=== PATIENT | female | born 1980 | race Caucasian/White ===

== ENCOUNTER 2019-01-07 15:46 | Inpatient (IN) | payer OTHER ==
[~2019-01-07] VITALS: Ht 160 cm; Wt 44.0 kg
[2019-01-07] MEDS ORDERED: DiphenhydrAMINE HCL 25 MG CAPSULE PO PRN (18:15)
[2019-01-07] MEDS ORDERED: DEXTROSE 50%-WATER 25 GM/50 ML SYRINGE IVP PRN ×2 (18:15)
[2019-01-07] MEDS ORDERED: INSULIN LISPRO 100 UNITS/ML SQ PRN ×2 (18:15)
[2019-01-07 18:27] VITALS: BP 85/56
[2019-01-07] MEDS ORDERED: HYDROCODONE/ACETAMINOPHEN 5-325 MG TABLET PO PRN (18:30)
[2019-01-07] MEDS: -LIDODERM PATCH NOTE- MISC SCH (21:00)
[2019-01-07 21:15] VITALS: BP 87/60
[2019-01-07] MEDS: CYCLOBENZAPRINE HCL 10 MG TABLET PO PRN (21:16)
[2019-01-07] MEDS: DOCUSATE SODIUM 100 MG CAPSULE PO SCH (21:17)
[2019-01-07] MEDS: GABAPENTIN 100 MG CAPSULE PO SCH (21:17)
[2019-01-07] MEDS: SENNA 187 MG TABLET PO SCH (21:17)
[2019-01-07] MEDS: ALPRAZolam 0.25 MG TABLET PO PRN (22:08)
[2019-01-07 23:00] VITALS: BP 88/56
[2019-01-08] MEDS: PANTOPRAZOLE SODIUM 40 MG DR TABLET PO SCH (06:02)
[2019-01-08 06:03] VITALS: BP 102/76
[2019-01-08] MEDS: HYDROmorphone HCL 2 MG TABLET PO PRN (06:03)
[2019-01-08 06:38] LABS: BASOPHILS % (AUTO) 0.8 % (0.0-2.0); EOSINOPHILS % (AUTO) 1.5 % (1.0-6.0); HEMOGLOBIN 9.9 g/dL (12.0-16.0); LYMPHOCYTES # (AUTO) 2.5 K/uL (1.0-4.8); LYMPHOCYTES % (AUTO) 47.5 % (22.0-44.0); MEAN CORPUSCULAR HGB CONC 36.6 G/dL (31.0-37.0); MEAN CORPUSCULAR VOLUME 90 fL (80-100); MONOCYTES # (AUTO) 0.5 K/uL (0.1-1.0); MONOCYTES % (AUTO) 9.7 % (2.0-9.0); NEUTROPHILS # (AUTO) 2.1 K/uL (1.8-7.7); NEUTROPHILS % (AUTO) 40.5 % (40.0-70.0); PLATELET COUNT (AUTO) 213 K/uL (150-450); RED BLOOD CELL COUNT(AUTO) 2.99 MIL/uL (4.00-5.20); RED CELL DISTRIBUTION WIDTH 15.7 % (11.5-14.5)
[2019-01-08 06:55] LABS: ALANINE AMINOTRANSFERASE 204 U/L (12-78); ALBUMIN 2.5 g/dL (3.4-5.0); ALKALINE PHOSPHATASE 70 U/L (46-116); ANION GAP 3 mmol/L (8-16); ASPARTATE AMINOTRANSFERASE 71 U/L (15-37); BILIRUBIN,TOTAL 0.3 mg/dL (0.1-1.0); CALCIUM, TOTAL 8.9 mg/dL (8.8-10.5); CARBON DIOXIDE 31 mmol/L (22-29); CHLORIDE 106 mmol/L (98-107); CREATININE 0.58 mg/dL (0.60-1.30); GLOMERULAR FILTR. RATE CALC > 60 mL/min (>60); GLUCOSE,RANDOM 70 mg/dL (70-110); POTASSIUM 4.1 mmol/L (3.5-5.1); SODIUM SERUM 140 mmol/L (136-145); TOTAL PROTEIN, SERUM 5.3 g/dL (6.4-8.2); UREA NITROGEN, BLOOD 27 mg/dL (7-18)
[2019-01-08 07:52] VITALS: BP 99/61
[2019-01-08] MEDS ORDERED: PredniSONE 20 MG TABLET PO SCH (09:00)
[2019-01-08] MEDS: LIDOCAINE 5% TRANSDERMAL PATCH TD SCH (09:00)
[2019-01-08] MEDS ORDERED: MULTIVITAMINS WITH MINERALS, THERAPEUTIC TABLET PO SCH (09:00)
[2019-01-08] MEDS: MULTIVITAMINS WITH IRON TABLET PO SCH (09:00)
[2019-01-08] MEDS: PredniSONE 20 MG TABLET PO SCH (09:10)
[2019-01-08] MEDS: DOCUSATE SODIUM 100 MG CAPSULE PO SCH ×2 (09:10→20:14)
[2019-01-08] MEDS: ENOXAPARIN SODIUM 40 MG/0.4 ML PF SYRINGE SQ SCH (09:10)
[2019-01-08] MEDS: GABAPENTIN 100 MG CAPSULE PO SCH ×3 (09:11→20:13)
[2019-01-08] MEDS: TraMADol HCL 50 MG TABLET PO PRN ×3 (10:57→21:45)
[2019-01-08] MEDS: ONDANSETRON HCL 4 MG TABLET PO PRN (10:58)
[2019-01-08] MEDS: CYCLOBENZAPRINE HCL 10 MG TABLET PO PRN (15:35)
[2019-01-08 16:10] VITALS: BP 92/60
[2019-01-08] MEDS: SENNA 187 MG TABLET PO SCH (20:15)
[2019-01-08] MEDS: -LIDODERM PATCH NOTE- MISC SCH (20:16)
[2019-01-08] MEDS: ALPRAZolam 0.25 MG TABLET PO PRN (21:06)
[2019-01-09 03:30] VITALS: BP 98/68
[2019-01-09] MEDS: PANTOPRAZOLE SODIUM 40 MG DR TABLET PO SCH (06:33)
[2019-01-09] MEDS: ONDANSETRON HCL 4 MG TABLET PO PRN (08:10)
[2019-01-09] MEDS: LIDOCAINE 5% TRANSDERMAL PATCH TD SCH (09:00)
[2019-01-09 09:34] VITALS: BP 94/64
[2019-01-09] MEDS: ENOXAPARIN SODIUM 40 MG/0.4 ML PF SYRINGE SQ SCH (10:08)
[2019-01-09] MEDS: DOCUSATE SODIUM 100 MG CAPSULE PO SCH ×2 (10:09→20:56)
[2019-01-09] MEDS: CYCLOBENZAPRINE HCL 10 MG TABLET PO PRN ×3 (10:09→20:56)
[2019-01-09] MEDS: GABAPENTIN 100 MG CAPSULE PO SCH ×3 (10:09→20:56)
[2019-01-09] MEDS: PredniSONE 20 MG TABLET PO SCH (10:09)
[2019-01-09] MEDS: MULTIVITAMINS WITH IRON TABLET PO SCH (10:09)
[2019-01-09] MEDS: TraMADol HCL 50 MG TABLET PO PRN ×3 (10:20→20:22)
[2019-01-09 15:36] VITALS: BP 104/75
[2019-01-09] MEDS: SENNA 187 MG TABLET PO SCH (20:56)
[2019-01-09] MEDS: -LIDODERM PATCH NOTE- MISC SCH (21:00)
[2019-01-09] MEDS: ALPRAZolam 0.25 MG TABLET PO PRN (21:55)
[2019-01-10 02:30] VITALS: BP 104/69
[2019-01-10] MEDS: PANTOPRAZOLE SODIUM 40 MG DR TABLET PO SCH (05:44)
[2019-01-10 07:15] VITALS: BP 112/77
[2019-01-10] MEDS: ONDANSETRON HCL 4 MG TABLET PO PRN (07:23)
[2019-01-10] MEDS: TraMADol HCL 50 MG TABLET PO PRN ×2 (07:23→21:29)
[2019-01-10] MEDS: CYCLOBENZAPRINE HCL 10 MG TABLET PO PRN ×2 (08:28→19:31)
[2019-01-10] MEDS: GABAPENTIN 100 MG CAPSULE PO SCH ×3 (08:28→19:31)
[2019-01-10] MEDS: DOCUSATE SODIUM 100 MG CAPSULE PO SCH ×2 (08:28→19:51)
[2019-01-10] MEDS: ENOXAPARIN SODIUM 40 MG/0.4 ML PF SYRINGE SQ SCH (08:28)
[2019-01-10] MEDS: MULTIVITAMINS WITH IRON TABLET PO SCH (08:28)
[2019-01-10] MEDS: PredniSONE 20 MG TABLET PO SCH (08:32)
[2019-01-10] MEDS: LIDOCAINE 5% TRANSDERMAL PATCH TD SCH (08:34)
[2019-01-10 16:00] VITALS: BP 98/64
[2019-01-10] MEDS: BACLOFEN 10 MG TABLET PO SCH ×2 (17:15→19:30)
[2019-01-10 19:31] VITALS: BP 99/74
[2019-01-10] MEDS: HYDROmorphone HCL 2 MG TABLET PO PRN (19:44)
[2019-01-10] MEDS: -LIDODERM PATCH NOTE- MISC SCH (19:51)
[2019-01-10] MEDS: SENNA 187 MG TABLET PO SCH (19:51)
[2019-01-10 23:40] VITALS: BP 95/57
[2019-01-10] MEDS: ALPRAZolam 0.25 MG TABLET PO PRN (23:40)
[2019-01-11] MEDS: PANTOPRAZOLE SODIUM 40 MG DR TABLET PO SCH (06:40)
[2019-01-11 07:08] LABS: ALANINE AMINOTRANSFERASE 173 U/L (12-78); ALBUMIN 2.4 g/dL (3.4-5.0); ALKALINE PHOSPHATASE 68 U/L (46-116); ANION GAP 7 mmol/L (8-16); ASPARTATE AMINOTRANSFERASE 74 U/L (15-37); BILIRUBIN,TOTAL 0.3 mg/dL (0.1-1.0); CALCIUM, TOTAL 8.9 mg/dL (8.8-10.5); CARBON DIOXIDE 29 mmol/L (22-29); CHLORIDE 107 mmol/L (98-107); GLOMERULAR FILTR. RATE CALC > 60 mL/min (>60); GLUCOSE,RANDOM 71 mg/dL (70-110); SODIUM SERUM 143 mmol/L (136-145); TOTAL PROTEIN, SERUM 5.1 g/dL (6.4-8.2); UREA NITROGEN, BLOOD 25 mg/dL (7-18)
[2019-01-11 07:42] VITALS: BP 110/78
[2019-01-11] MEDS: ENOXAPARIN SODIUM 40 MG/0.4 ML PF SYRINGE SQ SCH (07:47)
[2019-01-11] MEDS: MULTIVITAMINS WITH IRON TABLET PO SCH (07:48)
[2019-01-11] MEDS: BACLOFEN 10 MG TABLET PO SCH ×3 (07:48→20:55)
[2019-01-11] MEDS: PredniSONE 5 MG TABLET PO SCH (07:48)
[2019-01-11] MEDS: TraMADol HCL 50 MG TABLET PO PRN ×3 (07:48→20:59)
[2019-01-11] MEDS: DOCUSATE SODIUM 100 MG CAPSULE PO SCH ×2 (07:48→20:54)
[2019-01-11] MEDS: GABAPENTIN 100 MG CAPSULE PO SCH ×3 (07:48→20:56)
[2019-01-11] MEDS: LIDOCAINE 5% TRANSDERMAL PATCH TD SCH (07:54)
[2019-01-11] MEDS: ONDANSETRON HCL 4 MG TABLET PO PRN (08:59)
[2019-01-11] MEDS ORDERED: PredniSONE 10 MG TABLET PO SCH (09:00)
[2019-01-11] MEDS: CYCLOBENZAPRINE HCL 10 MG TABLET PO PRN ×2 (13:42→20:59)
[2019-01-11 16:07] VITALS: BP 99/57
[2019-01-11] MEDS: -LIDODERM PATCH NOTE- MISC SCH (20:54)
[2019-01-11] MEDS: SENNA 187 MG TABLET PO SCH (20:58)
[2019-01-11] MEDS: ALPRAZolam 0.25 MG TABLET PO PRN (22:08)
[2019-01-12] MEDS: PANTOPRAZOLE SODIUM 40 MG DR TABLET PO SCH (06:55)
[2019-01-12 07:27] VITALS: BP 115/74
[2019-01-12] MEDS: ONDANSETRON HCL 4 MG TABLET PO PRN (07:51)
[2019-01-12] MEDS: ENOXAPARIN SODIUM 40 MG/0.4 ML PF SYRINGE SQ SCH (08:33)
[2019-01-12] MEDS: MULTIVITAMINS WITH IRON TABLET PO SCH (08:33)
[2019-01-12] MEDS: DOCUSATE SODIUM 100 MG CAPSULE PO SCH ×2 (08:33→21:11)
[2019-01-12] MEDS: BACLOFEN 10 MG TABLET PO SCH ×3 (08:34→21:11)
[2019-01-12] MEDS: PredniSONE 5 MG TABLET PO SCH (08:34)
[2019-01-12] MEDS: GABAPENTIN 100 MG CAPSULE PO SCH ×3 (08:34→21:12)
[2019-01-12] MEDS: TraMADol HCL 50 MG TABLET PO PRN ×3 (08:34→21:12)
[2019-01-12] MEDS: LIDOCAINE 5% TRANSDERMAL PATCH TD SCH (08:35)
[2019-01-12 16:40] VITALS: BP 104/64
[2019-01-12] MEDS: -LIDODERM PATCH NOTE- MISC SCH (21:00)
[2019-01-12] MEDS: ALPRAZolam 0.25 MG TABLET PO PRN (21:11)
[2019-01-12] MEDS: SENNA 187 MG TABLET PO SCH (21:12)
[2019-01-12 23:00] VITALS: BP 105/71
[2019-01-13] MEDS: PANTOPRAZOLE SODIUM 40 MG DR TABLET PO SCH (06:40)
[2019-01-13] MEDS: ENOXAPARIN SODIUM 40 MG/0.4 ML PF SYRINGE SQ SCH (08:37)
[2019-01-13] MEDS: DOCUSATE SODIUM 100 MG CAPSULE PO SCH ×2 (08:37→21:05)
[2019-01-13] MEDS: MULTIVITAMINS WITH IRON TABLET PO SCH (08:37)
[2019-01-13] MEDS: BACLOFEN 10 MG TABLET PO SCH ×3 (08:38→21:06)
[2019-01-13] MEDS: GABAPENTIN 100 MG CAPSULE PO SCH ×3 (08:38→21:05)
[2019-01-13] MEDS: PredniSONE 5 MG TABLET PO SCH (08:39)
[2019-01-13] MEDS: LIDOCAINE 5% TRANSDERMAL PATCH TD SCH (08:39)
[2019-01-13] MEDS: ONDANSETRON HCL 4 MG TABLET PO PRN (08:39)
[2019-01-13] MEDS: TraMADol HCL 50 MG TABLET PO PRN ×2 (08:42→21:06)
[2019-01-13 09:00] VITALS: BP 106/74
[2019-01-13 16:00] VITALS: BP 110/74
[2019-01-13] MEDS: SENNA 187 MG TABLET PO SCH (21:05)
[2019-01-13] MEDS: ALPRAZolam 0.25 MG TABLET PO PRN (22:04)
[2019-01-14 06:00] VITALS: BP 111/75
[2019-01-14] MEDS: PANTOPRAZOLE SODIUM 40 MG DR TABLET PO SCH (06:31)
[2019-01-14 08:00] VITALS: BP 107/71
[2019-01-14] MEDS: ENOXAPARIN SODIUM 40 MG/0.4 ML PF SYRINGE SQ SCH (08:03)
[2019-01-14] MEDS: PredniSONE 10 MG TABLET PO SCH (08:04)
[2019-01-14] MEDS: GABAPENTIN 100 MG CAPSULE PO SCH ×3 (08:04→20:33)
[2019-01-14] MEDS: DOCUSATE SODIUM 100 MG CAPSULE PO SCH ×2 (08:04→20:33)
[2019-01-14] MEDS: MULTIVITAMINS WITH IRON TABLET PO SCH (08:04)
[2019-01-14] MEDS: BACLOFEN 10 MG TABLET PO SCH ×3 (08:04→20:33)
[2019-01-14] MEDS: ONDANSETRON HCL 4 MG TABLET PO PRN ×2 (08:05→19:28)
[2019-01-14 15:30] VITALS: BP 103/75
[2019-01-14] MEDS: TraMADol HCL 50 MG TABLET PO PRN ×2 (19:15→20:34)
[2019-01-14] MEDS: SENNA 187 MG TABLET PO SCH (20:34)
[2019-01-14] MEDS: ALPRAZolam 0.25 MG TABLET PO PRN (23:43)
[2019-01-14 23:53] VITALS: BP_SYST 104; BP_SYST 94; BP_DIAS 69
[2019-01-15] MEDS: PANTOPRAZOLE SODIUM 40 MG DR TABLET PO SCH (06:37)
[2019-01-15] MEDS: ONDANSETRON HCL 4 MG TABLET PO PRN ×2 (07:44→18:12)
[2019-01-15] MEDS: GABAPENTIN 100 MG CAPSULE PO SCH ×3 (08:21→20:56)
[2019-01-15] MEDS: PredniSONE 10 MG TABLET PO SCH (08:21)
[2019-01-15] MEDS: DOCUSATE SODIUM 100 MG CAPSULE PO SCH ×2 (08:21→20:56)
[2019-01-15] MEDS: MULTIVITAMINS WITH IRON TABLET PO SCH (08:22)
[2019-01-15] MEDS: BACLOFEN 10 MG TABLET PO SCH ×3 (08:23→21:00)
[2019-01-15] MEDS: ENOXAPARIN SODIUM 40 MG/0.4 ML PF SYRINGE SQ SCH (08:23)
[2019-01-15] MEDS ORDERED: PredniSONE 10 MG TABLET PO SCH (09:00)
[2019-01-15 09:01] VITALS: BP 110/57
[2019-01-15] MEDS: TraMADol HCL 50 MG TABLET PO PRN (12:21)
[2019-01-15 16:01] VITALS: BP 94/69
[2019-01-15] MEDS ORDERED: HYDROmorphone HCL 2 MG TABLET PO PRN (20:15)
[2019-01-15] MEDS ORDERED: HYDROCODONE/ACETAMINOPHEN 5-325 MG TABLET PO PRN (20:15)
[2019-01-15] MEDS: SENNA 187 MG TABLET PO SCH (20:56)
[2019-01-15] MEDS: ALPRAZolam 0.25 MG TABLET PO PRN (21:41)
[2019-01-15 23:00] VITALS: BP 93/68
[2019-01-16] MEDS: PANTOPRAZOLE SODIUM 40 MG DR TABLET PO SCH (06:39)
[2019-01-16] MEDS: ONDANSETRON HCL 4 MG TABLET PO PRN (07:45)
[2019-01-16] MEDS: BACLOFEN 10 MG TABLET PO SCH ×3 (08:49→20:38)
[2019-01-16] MEDS: MULTIVITAMINS WITH IRON TABLET PO SCH (08:49)
[2019-01-16] MEDS: DOCUSATE SODIUM 100 MG CAPSULE PO SCH (08:49)
[2019-01-16] MEDS: GABAPENTIN 100 MG CAPSULE PO SCH ×3 (08:49→20:38)
[2019-01-16] MEDS: ENOXAPARIN SODIUM 40 MG/0.4 ML PF SYRINGE SQ SCH (08:50)
[2019-01-16 09:00] VITALS: BP 95/64
[2019-01-16] MEDS: PredniSONE 10 MG TABLET PO SCH (11:41)
[2019-01-16 15:40] VITALS: BP 95/65
[2019-01-16] MEDS: DOCUSATE SODIUM 250 MG CAPSULE PO SCH (20:37)
[2019-01-16] MEDS: SENNA 187 MG TABLET PO SCH (20:38)
[2019-01-16] MEDS: HYDROmorphone HCL 2 MG TABLET PO PRN (20:42)
[2019-01-16] MEDS: ALPRAZolam 0.25 MG TABLET PO PRN (22:08)
[2019-01-17] MEDS: PANTOPRAZOLE SODIUM 40 MG DR TABLET PO SCH (06:36)
[2019-01-17 07:42] VITALS: BP 102/66
[2019-01-17] MEDS: ONDANSETRON HCL 4 MG TABLET PO PRN (07:45)
[2019-01-17] MEDS: ENOXAPARIN SODIUM 40 MG/0.4 ML PF SYRINGE SQ SCH (08:35)
[2019-01-17] MEDS: GABAPENTIN 100 MG CAPSULE PO SCH ×3 (08:36→20:56)
[2019-01-17] MEDS: DOCUSATE SODIUM 250 MG CAPSULE PO SCH ×2 (08:36→20:57)
[2019-01-17] MEDS: BACLOFEN 10 MG TABLET PO SCH ×3 (08:36→20:56)
[2019-01-17] MEDS: MULTIVITAMINS WITH IRON TABLET PO SCH (08:36)
[2019-01-17] MEDS: PredniSONE 5 MG TABLET PO SCH (13:40)
[2019-01-17 15:56] VITALS: BP 107/66
[2019-01-17] MEDS: MELATONIN 3 MG TABLET PO PRN (20:56)
[2019-01-17] MEDS: SENNA 187 MG TABLET PO SCH (20:57)
[2019-01-17 23:00] VITALS: BP 101/64
[2019-01-18] MEDS: PANTOPRAZOLE SODIUM 40 MG DR TABLET PO SCH (06:40)
[2019-01-18 07:30] VITALS: BP 110/80
[2019-01-18] MEDS: GABAPENTIN 100 MG CAPSULE PO SCH ×3 (07:56→21:36)
[2019-01-18] MEDS: POLYETHYLENE GLYCOL 3350 17 GM PACKET PO SCH (07:56)
[2019-01-18] MEDS: MULTIVITAMINS WITH IRON TABLET PO SCH (07:56)
[2019-01-18] MEDS: PredniSONE 5 MG TABLET PO SCH (07:56)
[2019-01-18] MEDS: BACLOFEN 10 MG TABLET PO SCH ×3 (07:56→21:36)
[2019-01-18] MEDS: DOCUSATE SODIUM 250 MG CAPSULE PO SCH ×2 (07:56→21:36)
[2019-01-18] MEDS: ENOXAPARIN SODIUM 40 MG/0.4 ML PF SYRINGE SQ SCH (07:57)
[2019-01-18] MEDS ORDERED: PredniSONE 5 MG TABLET PO SCH (09:00)
[2019-01-18 16:04] VITALS: BP 118/85
[2019-01-18] MEDS: MELATONIN 3 MG TABLET PO PRN (21:36)
[2019-01-18] MEDS: SENNA 187 MG TABLET PO SCH (21:36)
[2019-01-18] MEDS: TraMADol HCL 50 MG TABLET PO PRN (21:36)
[2019-01-18 23:00] VITALS: BP 105/65
[2019-01-19] MEDS: PANTOPRAZOLE SODIUM 40 MG DR TABLET PO SCH (06:26)
[2019-01-19] MEDS: POLYETHYLENE GLYCOL 3350 17 GM PACKET PO SCH (07:44)
[2019-01-19] MEDS: ONDANSETRON HCL 4 MG TABLET PO PRN (07:44)
[2019-01-19] MEDS: PredniSONE 5 MG TABLET PO SCH (07:44)
[2019-01-19] MEDS: DOCUSATE SODIUM 250 MG CAPSULE PO SCH ×2 (07:44→20:32)
[2019-01-19] MEDS: ENOXAPARIN SODIUM 40 MG/0.4 ML PF SYRINGE SQ SCH (07:44)
[2019-01-19] MEDS: MULTIVITAMINS WITH IRON TABLET PO SCH (07:45)
[2019-01-19] MEDS: GABAPENTIN 100 MG CAPSULE PO SCH ×3 (07:45→20:32)
[2019-01-19] MEDS: BACLOFEN 10 MG TABLET PO SCH ×3 (07:45→20:32)
[2019-01-19 08:12] VITALS: BP 120/67
[2019-01-19 16:05] VITALS: BP 104/68
[2019-01-19] MEDS: SENNA 187 MG TABLET PO SCH (20:32)
[2019-01-19] MEDS: MELATONIN 3 MG TABLET PO PRN (20:32)
[2019-01-19 23:00] VITALS: BP 95/66
[2019-01-20] MEDS: PANTOPRAZOLE SODIUM 40 MG DR TABLET PO SCH (06:40)
[2019-01-20 07:10] VITALS: BP 103/71
[2019-01-20] MEDS: GABAPENTIN 100 MG CAPSULE PO SCH ×3 (08:30→20:32)
[2019-01-20] MEDS: ENOXAPARIN SODIUM 40 MG/0.4 ML PF SYRINGE SQ SCH (08:30)
[2019-01-20] MEDS: BACLOFEN 10 MG TABLET PO SCH ×3 (08:30→20:32)
[2019-01-20] MEDS: DOCUSATE SODIUM 250 MG CAPSULE PO SCH ×2 (08:30→20:32)
[2019-01-20] MEDS: POLYETHYLENE GLYCOL 3350 17 GM PACKET PO SCH (08:30)
[2019-01-20] MEDS: MULTIVITAMINS WITH IRON TABLET PO SCH (08:30)
[2019-01-20] MEDS ORDERED: PredniSONE 5 MG TABLET PO ONE (09:30)
[2019-01-20] MEDS: ONDANSETRON HCL 4 MG TABLET PO PRN (09:36)
[2019-01-20 16:00] VITALS: BP 96/73
[2019-01-20] MEDS: SENNA 187 MG TABLET PO SCH (20:32)
[2019-01-20] MEDS: MELATONIN 3 MG TABLET PO PRN (20:32)
[2019-01-21 02:10] VITALS: BP 105/61
[2019-01-21] MEDS: PANTOPRAZOLE SODIUM 40 MG DR TABLET PO SCH (07:02)
[2019-01-21] MEDS: MULTIVITAMINS WITH IRON TABLET PO SCH (08:55)
[2019-01-21] MEDS: POLYETHYLENE GLYCOL 3350 17 GM PACKET PO SCH (08:56)
[2019-01-21] MEDS: BACLOFEN 10 MG TABLET PO SCH ×3 (08:56→20:41)
[2019-01-21] MEDS: DOCUSATE SODIUM 250 MG CAPSULE PO SCH ×2 (08:56→20:39)
[2019-01-21] MEDS: GABAPENTIN 100 MG CAPSULE PO SCH ×3 (08:56→20:40)
[2019-01-21] MEDS: ENOXAPARIN SODIUM 40 MG/0.4 ML PF SYRINGE SQ SCH (08:57)
[2019-01-21 09:01] VITALS: BP 107/77
[2019-01-21 16:00] VITALS: BP 97/63
[2019-01-21] MEDS: SENNA 187 MG TABLET PO SCH (20:40)
[2019-01-21] MEDS: MELATONIN 3 MG TABLET PO PRN (20:40)
[2019-01-21] MEDS: ALPRAZolam 0.25 MG TABLET PO PRN (22:10)
[2019-01-21] MEDS: TraMADol HCL 50 MG TABLET PO PRN (22:11)
[2019-01-21] MEDS: HYDROmorphone HCL 2 MG TABLET PO PRN (23:24)
[2019-01-21 23:34] VITALS: BP 98/69
[2019-01-22] MEDS: PANTOPRAZOLE SODIUM 40 MG DR TABLET PO SCH (06:44)
[2019-01-22 07:48] VITALS: BP 90/61
[2019-01-22] MEDS: DOCUSATE SODIUM 250 MG CAPSULE PO SCH ×2 (09:22→21:11)
[2019-01-22] MEDS: ENOXAPARIN SODIUM 40 MG/0.4 ML PF SYRINGE SQ SCH (09:22)
[2019-01-22] MEDS: MULTIVITAMINS WITH IRON TABLET PO SCH (09:22)
[2019-01-22] MEDS: GABAPENTIN 100 MG CAPSULE PO SCH ×3 (09:22→21:10)
[2019-01-22] MEDS: POLYETHYLENE GLYCOL 3350 17 GM PACKET PO SCH (09:22)
[2019-01-22] MEDS: BACLOFEN 10 MG TABLET PO SCH ×3 (09:22→21:11)
[2019-01-22] MEDS ORDERED: DOCUSATE SODIUM 283 MG/5 ML MINI-ENEMA PR PRN (14:30)
[2019-01-22 16:00] VITALS: BP 98/72
[2019-01-22] MEDS: ACETAMINOPHEN 325 MG TABLET PO PRN (16:13)
[2019-01-22] MEDS: SENNA 187 MG TABLET PO SCH (21:10)
[2019-01-22] MEDS: MELATONIN 3 MG TABLET PO PRN (21:13)
[2019-01-22 21:41] VITALS: BP 105/65
[2019-01-22] MEDS: ALPRAZolam 0.25 MG TABLET PO PRN (22:44)
[2019-01-23] MEDS: PANTOPRAZOLE SODIUM 40 MG DR TABLET PO SCH (06:28)
[2019-01-23 06:30] VITALS: BP 98/69
[2019-01-23 07:17] LABS: EOSINOPHILS % (AUTO) 0.9 % (1.0-6.0); HEMATOCRIT 29.7 % (36-46); HEMOGLOBIN 10.1 g/dL (12.0-16.0); LYMPHOCYTES % (AUTO) 46.9 % (22.0-44.0); MEAN CORPUSCULAR HEMOGLOBIN 30.2 pg (26.0-34.0); MEAN CORPUSCULAR VOLUME 89 fL (80-100); MONOCYTES # (AUTO) 0.5 K/uL (0.1-1.0); MONOCYTES % (AUTO) 11.2 % (2.0-9.0); NEUTROPHILS # (AUTO) 1.7 K/uL (1.8-7.7); PLATELET COUNT (AUTO) 178 K/uL (150-450); RED BLOOD CELL COUNT(AUTO) 3.35 MIL/uL (4.00-5.20); RED CELL DISTRIBUTION WIDTH 14.6 % (11.5-14.5)
[2019-01-23 07:26] LABS: ALANINE AMINOTRANSFERASE 97 U/L (12-78); ALBUMIN 2.1 g/dL (3.4-5.0); ALKALINE PHOSPHATASE 74 U/L (46-116); ANION GAP 5 mmol/L (8-16); ASPARTATE AMINOTRANSFERASE 46 U/L (15-37); BILIRUBIN,TOTAL 0.4 mg/dL (0.1-1.0); CALCIUM, TOTAL 8.9 mg/dL (8.8-10.5); CARBON DIOXIDE 29 mmol/L (22-29); CHLORIDE 103 mmol/L (98-107); GLOMERULAR FILTR. RATE CALC > 60 mL/min (>60); GLUCOSE,RANDOM 77 mg/dL (70-110); SODIUM SERUM 137 mmol/L (136-145); TOTAL PROTEIN, SERUM 5.2 g/dL (6.4-8.2); UREA NITROGEN, BLOOD 23 mg/dL (7-18)
[2019-01-23] MEDS: ENOXAPARIN SODIUM 40 MG/0.4 ML PF SYRINGE SQ SCH (07:57)
[2019-01-23] MEDS: MULTIVITAMINS WITH IRON TABLET PO SCH (07:57)
[2019-01-23] MEDS: GABAPENTIN 100 MG CAPSULE PO SCH ×3 (07:58→21:15)
[2019-01-23] MEDS: BACLOFEN 10 MG TABLET PO SCH ×3 (07:58→21:14)
[2019-01-23] MEDS: DOCUSATE SODIUM 250 MG CAPSULE PO SCH ×2 (07:58→21:12)
[2019-01-23] MEDS: POLYETHYLENE GLYCOL 3350 17 GM PACKET PO SCH (09:00)
[2019-01-23 09:02] VITALS: BP 106/76
[2019-01-23] MEDS: ALPRAZolam 0.25 MG TABLET PO PRN (21:12)
[2019-01-23 21:13] VITALS: BP 104/75
[2019-01-23] MEDS: TraMADol HCL 50 MG TABLET PO PRN (21:13)
[2019-01-23] MEDS: SENNA 187 MG TABLET PO SCH (21:13)
[2019-01-23 21:55] VITALS: BP 104/75
[2019-01-24 09:23] VITALS: BP 104/70
[2019-01-24] MEDS: DOCUSATE SODIUM 250 MG CAPSULE PO SCH ×2 (09:56→20:29)
[2019-01-24] MEDS: PANTOPRAZOLE SODIUM 40 MG DR TABLET PO SCH (09:56)
[2019-01-24] MEDS: MULTIVITAMINS WITH IRON TABLET PO SCH (09:56)
[2019-01-24] MEDS: POLYETHYLENE GLYCOL 3350 17 GM PACKET PO SCH (09:57)
[2019-01-24] MEDS: GABAPENTIN 100 MG CAPSULE PO SCH ×3 (09:57→20:29)
[2019-01-24] MEDS: BACLOFEN 10 MG TABLET PO SCH ×3 (09:57→20:29)
[2019-01-24] MEDS: ENOXAPARIN SODIUM 40 MG/0.4 ML PF SYRINGE SQ SCH (09:59)
[2019-01-24 15:49] VITALS: BP 108/75
[2019-01-24] MEDS: SENNA 187 MG TABLET PO SCH (20:29)
[2019-01-24] MEDS: CYCLOBENZAPRINE HCL 10 MG TABLET PO PRN (20:29)
[2019-01-24] MEDS: ALPRAZolam 0.25 MG TABLET PO PRN (23:06)
[2019-01-24 23:30] VITALS: BP 102/62
[2019-01-25] MEDS: BACLOFEN 10 MG TABLET PO SCH ×3 (07:58→20:43)
[2019-01-25] MEDS: POLYETHYLENE GLYCOL 3350 17 GM PACKET PO SCH (07:58)
[2019-01-25] MEDS: MULTIVITAMINS WITH IRON TABLET PO SCH (07:59)
[2019-01-25] MEDS: ENOXAPARIN SODIUM 40 MG/0.4 ML PF SYRINGE SQ SCH (07:59)
[2019-01-25] MEDS: DOCUSATE SODIUM 250 MG CAPSULE PO SCH ×2 (07:59→20:42)
[2019-01-25] MEDS: PANTOPRAZOLE SODIUM 40 MG DR TABLET PO SCH (07:59)
[2019-01-25] MEDS: GABAPENTIN 100 MG CAPSULE PO SCH ×3 (07:59→20:43)
[2019-01-25 09:00] VITALS: BP 108/84
[2019-01-25] MEDS: ACETAMINOPHEN 325 MG TABLET PO PRN (13:13)
[2019-01-25 15:16] VITALS: BP 99/66
[2019-01-25] MEDS: TraMADol HCL 50 MG TABLET PO PRN (20:43)
[2019-01-25] MEDS: SENNA 187 MG TABLET PO SCH (20:43)
[2019-01-25 21:29] VITALS: BP 105/73
[2019-01-25] MEDS: ALPRAZolam 0.25 MG TABLET PO PRN (22:41)
[2019-01-25 23:00] VITALS: BP 108/68
[2019-01-26 08:42] VITALS: BP 119/82
[2019-01-26] MEDS: MULTIVITAMINS WITH IRON TABLET PO SCH (08:43)
[2019-01-26] MEDS: BACLOFEN 10 MG TABLET PO SCH ×3 (08:43→20:37)
[2019-01-26] MEDS: GABAPENTIN 100 MG CAPSULE PO SCH ×3 (08:43→20:37)
[2019-01-26] MEDS: DOCUSATE SODIUM 250 MG CAPSULE PO SCH ×2 (08:43→20:37)
[2019-01-26] MEDS: PANTOPRAZOLE SODIUM 40 MG DR TABLET PO SCH (08:43)
[2019-01-26] MEDS: ENOXAPARIN SODIUM 40 MG/0.4 ML PF SYRINGE SQ SCH (08:44)
[2019-01-26] MEDS: POLYETHYLENE GLYCOL 3350 17 GM PACKET PO SCH (09:00)
[2019-01-26 16:30] VITALS: BP 103/75
[2019-01-26] MEDS: SENNA 187 MG TABLET PO SCH (20:37)
[2019-01-26] MEDS: ALPRAZolam 0.25 MG TABLET PO PRN (22:01)
[2019-01-26 22:04] VITALS: BP 94/67
[2019-01-27 03:47] VITALS: BP 117/84
[2019-01-27] MEDS: TraMADol HCL 50 MG TABLET PO PRN ×2 (03:47→14:30)
[2019-01-27] MEDS: HYDROmorphone HCL 2 MG TABLET PO PRN (05:28)
[2019-01-27] MEDS: PANTOPRAZOLE SODIUM 40 MG DR TABLET PO SCH (05:33)
[2019-01-27] MEDS: POLYETHYLENE GLYCOL 3350 17 GM PACKET PO SCH (08:00)
[2019-01-27] MEDS: BACLOFEN 10 MG TABLET PO SCH ×3 (08:01→20:46)
[2019-01-27] MEDS: DOCUSATE SODIUM 250 MG CAPSULE PO SCH ×2 (08:01→20:46)
[2019-01-27] MEDS: MULTIVITAMINS WITH IRON TABLET PO SCH (08:01)
[2019-01-27] MEDS: ENOXAPARIN SODIUM 40 MG/0.4 ML PF SYRINGE SQ SCH (08:01)
[2019-01-27] MEDS: GABAPENTIN 100 MG CAPSULE PO SCH ×2 (08:01→13:07)
[2019-01-27 09:24] VITALS: BP 111/70
[2019-01-27] MEDS: ACETAMINOPHEN 325 MG TABLET PO PRN (13:23)
[2019-01-27] MEDS ORDERED: GABAPENTIN 100 MG CAPSULE PO SCH (14:00)
[2019-01-27 15:23] VITALS: BP 100/69
[2019-01-27 17:41] LABS: THIOPURINE (TPMT) ACTIVITY 25.4
[2019-01-27] MEDS: HYDROCODONE/ACETAMINOPHEN 5-325 MG TABLET PO PRN (18:03)
[2019-01-27] MEDS: SENNA 187 MG TABLET PO SCH (20:46)
[2019-01-27] MEDS: GABAPENTIN 300 MG CAPSULE PO SCH (20:46)
[2019-01-27] MEDS: MELATONIN 5 MG TABLET PO PRN (22:06)
[2019-01-28 00:22] VITALS: BP 103/67
[2019-01-28 07:42] VITALS: BP_SYST 138; BP_SYST 94; BP_DIAS 66; BP_DIAS 72
[2019-01-28] MEDS: POLYETHYLENE GLYCOL 3350 17 GM PACKET PO SCH (08:05)
[2019-01-28] MEDS: GABAPENTIN 100 MG CAPSULE PO SCH ×2 (08:05→14:55)
[2019-01-28] MEDS: MULTIVITAMINS WITH IRON TABLET PO SCH (08:06)
[2019-01-28] MEDS: DOCUSATE SODIUM 250 MG CAPSULE PO SCH ×2 (08:06→20:52)
[2019-01-28] MEDS: ENOXAPARIN SODIUM 40 MG/0.4 ML PF SYRINGE SQ SCH (08:06)
[2019-01-28] MEDS: BACLOFEN 10 MG TABLET PO SCH ×3 (08:06→20:52)
[2019-01-28] MEDS: PANTOPRAZOLE SODIUM 40 MG DR TABLET PO SCH (08:06)
[2019-01-28] MEDS: HYDROCODONE/ACETAMINOPHEN 5-325 MG TABLET PO PRN ×3 (08:08→20:52)
[2019-01-28 08:20] VITALS: BP 115/72
[2019-01-28] MEDS: ONDANSETRON HCL 4 MG TABLET PO PRN (08:29)
[2019-01-28 09:08] VITALS: BP 15/72
[2019-01-28 15:55] VITALS: BP 96/73
[2019-01-28 20:45] VITALS: BP 104/69
[2019-01-28] MEDS: SENNA 187 MG TABLET PO SCH (20:52)
[2019-01-28] MEDS: GABAPENTIN 300 MG CAPSULE PO SCH (20:57)
[2019-01-28] MEDS: MELATONIN 5 MG TABLET PO PRN (20:57)
[2019-01-29 06:15] VITALS: BP 98/61
[2019-01-29 07:00] LABS: BASOPHILS % (AUTO) 0.9 % (0.0-2.0); EOSINOPHILS % (AUTO) 1.3 % (1.0-6.0); HEMATOCRIT 30.2 % (36-46); HEMOGLOBIN 10.2 g/dL (12.0-16.0); MEAN CORPUSCULAR HEMOGLOBIN 29.7 pg (26.0-34.0); MEAN CORPUSCULAR HGB CONC 33.9 G/dL (31.0-37.0); MEAN CORPUSCULAR VOLUME 87 fL (80-100); MONOCYTES # (AUTO) 0.6 K/uL (0.1-1.0); MONOCYTES % (AUTO) 12.5 % (2.0-9.0); NEUTROPHILS # (AUTO) 1.8 K/uL (1.8-7.7); NEUTROPHILS % (AUTO) 41.3 % (40.0-70.0); PLATELET COUNT (AUTO) 193 K/uL (150-450); RED BLOOD CELL COUNT(AUTO) 3.45 MIL/uL (4.00-5.20); RED CELL DISTRIBUTION WIDTH 14.2 % (11.5-14.5)
[2019-01-29 07:19] LABS: ALANINE AMINOTRANSFERASE 54 U/L (12-78); ALBUMIN 2.1 g/dL (3.4-5.0); ALKALINE PHOSPHATASE 70 U/L (46-116); ANION GAP 4 mmol/L (8-16); ASPARTATE AMINOTRANSFERASE 40 U/L (15-37); BILIRUBIN,TOTAL 0.2 mg/dL (0.1-1.0); CALCIUM, TOTAL 9.1 mg/dL (8.8-10.5); CARBON DIOXIDE 30 mmol/L (22-29); CHLORIDE 105 mmol/L (98-107); CREATININE 0.54 mg/dL (0.60-1.30); GLOMERULAR FILTR. RATE CALC > 60 mL/min (>60); GLUCOSE,RANDOM 81 mg/dL (70-110); POTASSIUM 4.1 mmol/L (3.5-5.1); SODIUM SERUM 139 mmol/L (136-145); TOTAL PROTEIN, SERUM 5.3 g/dL (6.4-8.2); UREA NITROGEN, BLOOD 19 mg/dL (7-18)
[2019-01-29] MEDS: DOCUSATE SODIUM 250 MG CAPSULE PO SCH ×2 (07:57→20:57)
[2019-01-29] MEDS: ENOXAPARIN SODIUM 40 MG/0.4 ML PF SYRINGE SQ SCH (07:57)
[2019-01-29] MEDS: GABAPENTIN 100 MG CAPSULE PO SCH ×2 (07:57→13:35)
[2019-01-29] MEDS: BACLOFEN 10 MG TABLET PO SCH ×3 (07:57→20:56)
[2019-01-29] MEDS: POLYETHYLENE GLYCOL 3350 17 GM PACKET PO SCH (07:57)
[2019-01-29] MEDS: MULTIVITAMINS WITH IRON TABLET PO SCH (07:57)
[2019-01-29] MEDS: PANTOPRAZOLE SODIUM 40 MG DR TABLET PO SCH (07:57)
[2019-01-29 09:01] VITALS: BP 107/62
[2019-01-29] MEDS: ONDANSETRON HCL 4 MG TABLET PO PRN (09:44)
[2019-01-29] MEDS: HYDROCODONE/ACETAMINOPHEN 5-325 MG TABLET PO PRN (09:44)
[2019-01-29 16:00] VITALS: BP 95/69
[2019-01-29] MEDS: MELATONIN 5 MG TABLET PO PRN (20:57)
[2019-01-29] MEDS: SENNA 187 MG TABLET PO SCH (20:57)
[2019-01-29] MEDS: GABAPENTIN 300 MG CAPSULE PO SCH (21:00)
[2019-01-30 01:45] VITALS: BP 96/60
[2019-01-30] MEDS: PANTOPRAZOLE SODIUM 40 MG DR TABLET PO SCH (07:59)
[2019-01-30] MEDS: ONDANSETRON HCL 4 MG TABLET PO PRN (07:59)
[2019-01-30 09:10] VITALS: BP 110/79
[2019-01-30] MEDS: DOCUSATE SODIUM 250 MG CAPSULE PO SCH ×2 (09:13→20:25)
[2019-01-30] MEDS: GABAPENTIN 100 MG CAPSULE PO SCH ×2 (09:14→13:45)
[2019-01-30] MEDS: POLYETHYLENE GLYCOL 3350 17 GM PACKET PO SCH (09:14)
[2019-01-30] MEDS: BACLOFEN 10 MG TABLET PO SCH ×3 (09:14→20:25)
[2019-01-30] MEDS: ENOXAPARIN SODIUM 40 MG/0.4 ML PF SYRINGE SQ SCH (09:14)
[2019-01-30] MEDS: MULTIVITAMINS WITH IRON TABLET PO SCH (09:14)
[2019-01-30] MEDS: LORATADINE 10 MG TABLET PO SCH (17:31)
[2019-01-30 18:07] VITALS: BP 101/71
[2019-01-30] MEDS: MELATONIN 5 MG TABLET PO PRN (20:24)
[2019-01-30] MEDS: SENNA 187 MG TABLET PO SCH (20:25)
[2019-01-30] MEDS: GABAPENTIN 300 MG CAPSULE PO SCH (20:27)
[2019-01-30] MEDS: ALPRAZolam 0.25 MG TABLET PO PRN (22:15)
[2019-01-30 23:00] VITALS: BP 104/69
[2019-01-31] MEDS: PANTOPRAZOLE SODIUM 40 MG DR TABLET PO SCH (07:50)
[2019-01-31] MEDS: ONDANSETRON HCL 4 MG TABLET PO PRN (07:50)
[2019-01-31] MEDS: BACLOFEN 10 MG TABLET PO SCH ×3 (08:58→21:10)
[2019-01-31] MEDS: DOCUSATE SODIUM 250 MG CAPSULE PO SCH ×2 (08:58→21:14)
[2019-01-31] MEDS: LORATADINE 10 MG TABLET PO SCH (08:58)
[2019-01-31] MEDS: POLYETHYLENE GLYCOL 3350 17 GM PACKET PO SCH (08:58)
[2019-01-31] MEDS: MULTIVITAMINS WITH IRON TABLET PO SCH (08:58)
[2019-01-31] MEDS: GABAPENTIN 100 MG CAPSULE PO SCH ×2 (08:59→13:17)
[2019-01-31] MEDS: ENOXAPARIN SODIUM 40 MG/0.4 ML PF SYRINGE SQ SCH (08:59)
[2019-01-31 09:01] VITALS: BP 105/70
[2019-01-31 17:20] VITALS: BP 103/70
[2019-01-31] MEDS: MELATONIN 5 MG TABLET PO PRN (21:14)
[2019-01-31] MEDS: GABAPENTIN 300 MG CAPSULE PO SCH (21:14)
[2019-01-31] MEDS: SENNA 187 MG TABLET PO SCH (21:14)
[2019-02-01] MEDS: PANTOPRAZOLE SODIUM 40 MG DR TABLET PO SCH (08:06)
[2019-02-01] MEDS: ONDANSETRON HCL 4 MG TABLET PO PRN (08:06)
[2019-02-01 08:24] VITALS: BP 117/80
[2019-02-01] MEDS: LORATADINE 10 MG TABLET PO SCH (08:41)
[2019-02-01] MEDS: MULTIVITAMINS WITH IRON TABLET PO SCH (08:41)
[2019-02-01] MEDS: DOCUSATE SODIUM 250 MG CAPSULE PO SCH ×2 (08:41→21:01)
[2019-02-01] MEDS: ENOXAPARIN SODIUM 40 MG/0.4 ML PF SYRINGE SQ SCH (08:41)
[2019-02-01] MEDS: POLYETHYLENE GLYCOL 3350 17 GM PACKET PO SCH (08:41)
[2019-02-01] MEDS: BACLOFEN 10 MG TABLET PO SCH ×3 (08:41→21:01)
[2019-02-01] MEDS: GABAPENTIN 100 MG CAPSULE PO SCH ×2 (08:41→13:06)
[2019-02-01] MEDS: TraMADol HCL 50 MG TABLET PO PRN ×2 (16:07→23:32)
[2019-02-01] MEDS: SENNA 187 MG TABLET PO SCH (21:01)
[2019-02-01] MEDS: FEXOFENADINE HCL 60 MG TABLET PO SCH (21:02)
[2019-02-01] MEDS: GABAPENTIN 400 MG CAPSULE PO SCH (21:02)
[2019-02-01] MEDS: MELATONIN 5 MG TABLET PO PRN (21:36)
[2019-02-01 23:32] VITALS: BP 108/72
[2019-02-01] MEDS: ALPRAZolam 0.25 MG TABLET PO PRN (23:32)
[2019-02-02 07:30] VITALS: BP 92/62
[2019-02-02] MEDS: ENOXAPARIN SODIUM 40 MG/0.4 ML PF SYRINGE SQ SCH (08:26)
[2019-02-02] MEDS: FEXOFENADINE HCL 60 MG TABLET PO SCH ×2 (08:27→20:54)
[2019-02-02] MEDS: POLYETHYLENE GLYCOL 3350 17 GM PACKET PO SCH (08:27)
[2019-02-02] MEDS: PANTOPRAZOLE SODIUM 40 MG DR TABLET PO SCH (08:27)
[2019-02-02] MEDS: BACLOFEN 10 MG TABLET PO SCH ×3 (08:27→20:54)
[2019-02-02] MEDS: MULTIVITAMINS WITH IRON TABLET PO SCH (08:27)
[2019-02-02] MEDS: DOCUSATE SODIUM 250 MG CAPSULE PO SCH ×2 (08:27→20:54)
[2019-02-02] MEDS: GABAPENTIN 100 MG CAPSULE PO SCH ×2 (08:29→14:12)
[2019-02-02 15:43] VITALS: BP 91/54
[2019-02-02] MEDS: SENNA 187 MG TABLET PO SCH (20:54)
[2019-02-02] MEDS: TraMADol HCL 50 MG TABLET PO PRN (20:54)
[2019-02-02] MEDS: GABAPENTIN 400 MG CAPSULE PO SCH (20:54)
[2019-02-02] MEDS: ALPRAZolam 0.25 MG TABLET PO PRN (20:54)
[2019-02-03 00:22] VITALS: BP 94/69
[2019-02-03] MEDS: PANTOPRAZOLE SODIUM 40 MG DR TABLET PO SCH (07:50)
[2019-02-03] MEDS: ONDANSETRON HCL 4 MG TABLET PO PRN (07:51)
[2019-02-03 09:00] VITALS: BP 85/49
[2019-02-03] MEDS: GABAPENTIN 100 MG CAPSULE PO SCH ×2 (10:02→13:02)
[2019-02-03] MEDS: MULTIVITAMINS WITH IRON TABLET PO SCH (10:02)
[2019-02-03] MEDS: FEXOFENADINE HCL 60 MG TABLET PO SCH ×2 (10:02→21:33)
[2019-02-03] MEDS: ENOXAPARIN SODIUM 40 MG/0.4 ML PF SYRINGE SQ SCH (10:02)
[2019-02-03] MEDS: POLYETHYLENE GLYCOL 3350 17 GM PACKET PO SCH (10:02)
[2019-02-03] MEDS: DOCUSATE SODIUM 250 MG CAPSULE PO SCH ×2 (10:03→21:33)
[2019-02-03] MEDS: BACLOFEN 10 MG TABLET PO SCH ×3 (10:03→21:33)
[2019-02-03 16:42] VITALS: BP 98/60
[2019-02-03] MEDS: SENNA 187 MG TABLET PO SCH (21:32)
[2019-02-03] MEDS: GABAPENTIN 400 MG CAPSULE PO SCH (21:32)
[2019-02-03] MEDS: MELATONIN 5 MG TABLET PO PRN (21:33)
[2019-02-03 21:42] VITALS: BP 109/72
[2019-02-03] MEDS: ALPRAZolam 0.25 MG TABLET PO PRN (22:40)
[2019-02-04 00:20] VITALS: BP 104/66
[2019-02-04 07:15] VITALS: BP 108/70
[2019-02-04] MEDS: POLYETHYLENE GLYCOL 3350 17 GM PACKET PO SCH (08:09)
[2019-02-04] MEDS: GABAPENTIN 100 MG CAPSULE PO SCH ×2 (08:09→13:06)
[2019-02-04] MEDS: MULTIVITAMINS WITH IRON TABLET PO SCH (08:09)
[2019-02-04] MEDS: DOCUSATE SODIUM 250 MG CAPSULE PO SCH ×2 (08:09→20:44)
[2019-02-04] MEDS: ENOXAPARIN SODIUM 40 MG/0.4 ML PF SYRINGE SQ SCH (08:09)
[2019-02-04] MEDS: PANTOPRAZOLE SODIUM 40 MG DR TABLET PO SCH (08:10)
[2019-02-04] MEDS: BACLOFEN 10 MG TABLET PO SCH ×3 (08:10→20:44)
[2019-02-04] MEDS: FEXOFENADINE HCL 60 MG TABLET PO SCH ×2 (08:10→20:44)
[2019-02-04 16:30] VITALS: BP 96/64
[2019-02-04] MEDS: GABAPENTIN 400 MG CAPSULE PO SCH (20:44)
[2019-02-04] MEDS: SENNA 187 MG TABLET PO SCH (20:44)
[2019-02-04] MEDS: ALPRAZolam 0.25 MG TABLET PO PRN (20:45)
[2019-02-04 23:00] VITALS: BP 101/68
[2019-02-05 00:33] VITALS: BP 111/68
[2019-02-05] MEDS: TraMADol HCL 50 MG TABLET PO PRN ×2 (00:33→20:12)
[2019-02-05] MEDS: MELATONIN 5 MG TABLET PO PRN ×2 (00:33→21:27)
[2019-02-05 07:30] VITALS: BP 108/69
[2019-02-05] MEDS: PANTOPRAZOLE SODIUM 40 MG DR TABLET PO SCH (08:23)
[2019-02-05] MEDS: GABAPENTIN 100 MG CAPSULE PO SCH ×2 (08:23→13:06)
[2019-02-05] MEDS: DOCUSATE SODIUM 250 MG CAPSULE PO SCH ×2 (08:23→20:11)
[2019-02-05] MEDS: POLYETHYLENE GLYCOL 3350 17 GM PACKET PO SCH (08:23)
[2019-02-05] MEDS: FEXOFENADINE HCL 60 MG TABLET PO SCH ×2 (08:23→20:11)
[2019-02-05] MEDS: MULTIVITAMINS WITH IRON TABLET PO SCH (08:23)
[2019-02-05] MEDS: ENOXAPARIN SODIUM 40 MG/0.4 ML PF SYRINGE SQ SCH (08:23)
[2019-02-05] MEDS: BACLOFEN 10 MG TABLET PO SCH ×3 (08:23→20:12)
[2019-02-05 16:00] VITALS: BP 93/62
[2019-02-05] MEDS: GABAPENTIN 400 MG CAPSULE PO SCH (20:11)
[2019-02-05] MEDS: SENNA 187 MG TABLET PO SCH (20:11)
[2019-02-05] MEDS: ALPRAZolam 0.25 MG TABLET PO PRN (21:27)
[2019-02-06] VITALS: BP 105/71
[2019-02-06] MEDS: PANTOPRAZOLE SODIUM 40 MG DR TABLET PO SCH (07:50)
[2019-02-06] MEDS: ONDANSETRON HCL 4 MG TABLET PO PRN (07:50)
[2019-02-06 08:00] VITALS: BP 100/67
[2019-02-06] MEDS: GABAPENTIN 100 MG CAPSULE PO SCH ×2 (08:57→12:41)
[2019-02-06] MEDS: BACLOFEN 10 MG TABLET PO SCH ×4 (08:57→22:08)
[2019-02-06] MEDS: MULTIVITAMINS WITH IRON TABLET PO SCH (08:57)
[2019-02-06] MEDS: FEXOFENADINE HCL 60 MG TABLET PO SCH ×2 (08:57→21:39)
[2019-02-06] MEDS: DOCUSATE SODIUM 250 MG CAPSULE PO SCH ×2 (08:57→21:37)
[2019-02-06] MEDS: POLYETHYLENE GLYCOL 3350 17 GM PACKET PO SCH (08:57)
[2019-02-06] MEDS: ENOXAPARIN SODIUM 40 MG/0.4 ML PF SYRINGE SQ SCH (08:58)
[2019-02-06] MEDS: TraMADol HCL 50 MG TABLET PO PRN ×2 (12:41→21:39)
[2019-02-06] MEDS: SENNA 187 MG TABLET PO SCH (21:37)
[2019-02-06] MEDS: GABAPENTIN 400 MG CAPSULE PO SCH (21:39)
[2019-02-06] MEDS: MELATONIN 5 MG TABLET PO PRN (21:40)
[2019-02-06] MEDS: ALPRAZolam 0.25 MG TABLET PO PRN (21:40)
[2019-02-07] VITALS: BP 96/59
[2019-02-07] MEDS: ENOXAPARIN SODIUM 40 MG/0.4 ML PF SYRINGE SQ SCH (08:59)
[2019-02-07] MEDS: POLYETHYLENE GLYCOL 3350 17 GM PACKET PO SCH (08:59)
[2019-02-07] MEDS: FEXOFENADINE HCL 60 MG TABLET PO SCH ×2 (09:00→20:23)
[2019-02-07] MEDS: DOCUSATE SODIUM 250 MG CAPSULE PO SCH ×2 (09:00→20:23)
[2019-02-07] MEDS: PANTOPRAZOLE SODIUM 40 MG DR TABLET PO SCH (09:00)
[2019-02-07] MEDS: MULTIVITAMINS WITH IRON TABLET PO SCH (09:00)
[2019-02-07] MEDS: BACLOFEN 10 MG TABLET PO SCH ×3 (09:00→20:23)
[2019-02-07] MEDS: GABAPENTIN 100 MG CAPSULE PO SCH ×2 (09:00→14:10)
[2019-02-07 09:34] VITALS: BP 91/70
[2019-02-07 16:01] VITALS: BP 107/75
[2019-02-07] MEDS: SENNA 187 MG TABLET PO SCH (20:23)
[2019-02-07] MEDS: GABAPENTIN 400 MG CAPSULE PO SCH (20:23)
[2019-02-07] MEDS: MELATONIN 5 MG TABLET PO PRN (20:23)
[2019-02-07] MEDS: TraMADol HCL 50 MG TABLET PO PRN (22:00)
[2019-02-08] MEDS: DOCUSATE SODIUM 250 MG CAPSULE PO SCH ×2 (08:15→20:06)
[2019-02-08] MEDS: MULTIVITAMINS WITH IRON TABLET PO SCH (08:15)
[2019-02-08] MEDS: BACLOFEN 10 MG TABLET PO SCH ×3 (08:15→20:07)
[2019-02-08] MEDS: ENOXAPARIN SODIUM 40 MG/0.4 ML PF SYRINGE SQ SCH (08:15)
[2019-02-08] MEDS: FEXOFENADINE HCL 60 MG TABLET PO SCH ×2 (08:15→20:05)
[2019-02-08] MEDS: POLYETHYLENE GLYCOL 3350 17 GM PACKET PO SCH (08:15)
[2019-02-08] MEDS: PANTOPRAZOLE SODIUM 40 MG DR TABLET PO SCH (08:15)
[2019-02-08] MEDS: GABAPENTIN 100 MG CAPSULE PO SCH ×2 (08:15→13:25)
[2019-02-08 08:41] VITALS: BP 111/71
[2019-02-08 16:30] VITALS: BP 92/59
[2019-02-08] MEDS: TraMADol HCL 50 MG TABLET PO PRN ×2 (16:58→21:59)
[2019-02-08] MEDS: SENNA 187 MG TABLET PO SCH (20:07)
[2019-02-08] MEDS: GABAPENTIN 400 MG CAPSULE PO SCH (20:07)
[2019-02-08] MEDS: MELATONIN 5 MG TABLET PO PRN (20:07)
[2019-02-08] MEDS: ALPRAZolam 0.25 MG TABLET PO PRN (21:59)
[2019-02-08 23:07] VITALS: BP 97/62
[2019-02-09 07:50] VITALS: BP 90/58
[2019-02-09] MEDS: POLYETHYLENE GLYCOL 3350 17 GM PACKET PO SCH (08:14)
[2019-02-09] MEDS: BACLOFEN 10 MG TABLET PO SCH ×3 (08:14→20:08)
[2019-02-09] MEDS: PANTOPRAZOLE SODIUM 40 MG DR TABLET PO SCH (08:15)
[2019-02-09] MEDS: GABAPENTIN 100 MG CAPSULE PO SCH ×2 (08:15→15:35)
[2019-02-09] MEDS: FEXOFENADINE HCL 60 MG TABLET PO SCH ×2 (08:15→20:08)
[2019-02-09] MEDS: MULTIVITAMINS WITH IRON TABLET PO SCH (08:15)
[2019-02-09] MEDS: DOCUSATE SODIUM 250 MG CAPSULE PO SCH ×2 (08:15→20:08)
[2019-02-09] MEDS: ENOXAPARIN SODIUM 40 MG/0.4 ML PF SYRINGE SQ SCH (08:20)
[2019-02-09] MEDS: ONDANSETRON HCL 4 MG TABLET PO PRN ×2 (11:51→20:27)
[2019-02-09 11:53] VITALS: BP 112/81
[2019-02-09] MEDS: TraMADol HCL 50 MG TABLET PO PRN ×2 (13:15→20:08)
[2019-02-09 16:00] VITALS: BP 95/65
[2019-02-09] MEDS: GABAPENTIN 400 MG CAPSULE PO SCH (20:08)
[2019-02-09] MEDS: SENNA 187 MG TABLET PO SCH (20:08)
[2019-02-09] MEDS: MELATONIN 5 MG TABLET PO PRN (20:08)
[2019-02-09] MEDS: ALPRAZolam 0.25 MG TABLET PO PRN (21:21)
[2019-02-10] MEDS: PANTOPRAZOLE SODIUM 40 MG DR TABLET PO SCH (07:38)
[2019-02-10] MEDS: ONDANSETRON HCL 4 MG TABLET PO PRN (07:38)
[2019-02-10 07:40] VITALS: BP 94/66
[2019-02-10] MEDS: GABAPENTIN 100 MG CAPSULE PO SCH ×2 (08:26→15:10)
[2019-02-10] MEDS: POLYETHYLENE GLYCOL 3350 17 GM PACKET PO SCH (08:26)
[2019-02-10] MEDS: MULTIVITAMINS WITH IRON TABLET PO SCH (08:26)
[2019-02-10] MEDS: DOCUSATE SODIUM 250 MG CAPSULE PO SCH ×2 (08:26→20:41)
[2019-02-10] MEDS: FEXOFENADINE HCL 60 MG TABLET PO SCH ×2 (08:26→20:41)
[2019-02-10] MEDS: ENOXAPARIN SODIUM 40 MG/0.4 ML PF SYRINGE SQ SCH (08:26)
[2019-02-10] MEDS: BACLOFEN 10 MG TABLET PO SCH ×3 (08:27→20:41)
[2019-02-10] MEDS ORDERED: PANT40TA25 PO (13:28)
[2019-02-10] MEDS ORDERED: DOCU250C91 PO (13:28)
[2019-02-10] MEDS ORDERED: POLY17PO PO (13:28)
[2019-02-10] MEDS ORDERED: GABA-531 PO (13:28)
[2019-02-10] MEDS ORDERED: GABA-529 PO (13:28)
[2019-02-10] MEDS ORDERED: FEXO-58 PO (13:28)
[2019-02-10] MEDS ORDERED: TRAM50TA4 PO (13:28)
[2019-02-10] MEDS ORDERED: ALPR0.255 PO (13:28)
[2019-02-10] MEDS ORDERED: BACL10TA PO (13:28)
[2019-02-10] MEDS ORDERED: MULT-199 PO (13:28)
[2019-02-10] MEDS ORDERED: ONDA4 PO (14:27)
[2019-02-10 16:05] VITALS: BP 96/65
[2019-02-10] MEDS: GABAPENTIN 400 MG CAPSULE PO SCH (20:41)
[2019-02-10] MEDS: SENNA 187 MG TABLET PO SCH (20:41)
[2019-02-10] MEDS: MELATONIN 5 MG TABLET PO PRN (20:41)
[2019-02-10] MEDS: ALPRAZolam 0.25 MG TABLET PO PRN (23:03)
[2019-02-11] VITALS: BP 97/63
[2019-02-11 08:01] VITALS: BP 88/65
[2019-02-11] MEDS: PANTOPRAZOLE SODIUM 40 MG DR TABLET PO SCH (08:05)
[2019-02-11] MEDS: ONDANSETRON HCL 4 MG TABLET PO PRN (08:05)
[2019-02-11] MEDS: GABAPENTIN 100 MG CAPSULE PO SCH (09:30)
[2019-02-11] MEDS: FEXOFENADINE HCL 60 MG TABLET PO SCH (09:30)
[2019-02-11] MEDS: BACLOFEN 10 MG TABLET PO SCH (09:30)
[2019-02-11] MEDS: POLYETHYLENE GLYCOL 3350 17 GM PACKET PO SCH (09:30)
[2019-02-11] MEDS: ENOXAPARIN SODIUM 40 MG/0.4 ML PF SYRINGE SQ SCH (09:30)
[2019-02-11] MEDS: DOCUSATE SODIUM 250 MG CAPSULE PO SCH (09:30)
[2019-02-11] MEDS: MULTIVITAMINS WITH IRON TABLET PO SCH (09:30)
== END 2019-02-11 10:25 | disposition home health service (06) | DRG 73 ==
LOC: 2WR 16:55
DX: G62.9 Polyneuropathy, unspecified (principal); G82.50 Quadriplegia, unspecified; J69.0 Pneumonitis due to inhalation of food and vomit; J96.90 Respiratory failure, unspecified, unspecified whether with hypoxia or hypercapnia; R13.12 Dysphagia, oropharyngeal phase; M54.5 Low back pain; G89.29 Other chronic pain; Z98.1 Arthrodesis status; R49.0 Dysphonia; R74.8 Abnormal levels of other serum enzymes; F41.9 Anxiety disorder, unspecified; R51 Headache; Z87.01 Personal history of pneumonia (recurrent); Z92.241 Personal history of systemic steroid therapy
CPT/HCPCS: 82657; 84134; 87081; 92507; 92508; 92610; 93970; 97110; 97112; 97116; 97150; 97163; 97167; 97530; 97535; 97760; 99366; G0238; J1650; Q0162